=== PATIENT | male | born 1965 | race Caucasian/White ===

== ENCOUNTER 2018-06-28 11:53 | Emergency (ER) | payer BC ==
[~2018-06-28] VITALS: Ht 172.7 cm; Wt 74.8 kg
--- NOTE | ~2018-06-28 | EKG ---
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
[2018-06-28] MEDS ORDERED: LIPITOR 20 MG T20 M1 PO (12:24)
[2018-06-28 12:27] LABS: ABSOLUTE NEUTROPHILS 3.6 thou/uL (1.4-8.2); BASOPHILS 1.2 % (0.0-2.0); EOSINOPHILS 0.7 % (0.0-3.0); HEMOGLOBIN 14.8 gm/dL (14.0-18.0); MCH 28.8 pg (26.0-34.0); MCHC 34.5 g/dL (28.0-37.0); MCV 83.6 fL (80.0-100.0); MONOCYTES 7.9 % (1.0-8.0); PLATELET COUNT 214 thou/uL (150-400); POLYS 56.2 % (36.0-66.0); RBC 5.14 mil/uL (4.50-6.00); RDW 12.8 % (10.5-14.5); WBC 6.5 thou/uL (4.0-11.0)
[2018-06-28 12:38] LABS: ANION GAP 10 mmol/L (7-16); BUN 11 mg/dL (7-18); CALCIUM 9.5 mg/dL (8.5-10.1); CHLORIDE 101 mmol/L (98-107); CO2 28 mmol/L (21-32); GLUCOSE 101 mg/dL (74-106); POTASSIUM 3.8 mmol/L (3.5-5.1); SODIUM 139 mmol/L (136-145)
[2018-06-28 12:46] LABS: TROPONIN-I <0.06 ng/mL (<0.06)
[2018-06-28] MEDS ORDERED: MOBIC15 MG PO (13:17)
[2018-06-28 13:19] VITALS: BP 141/82
== END 2018-06-28 13:23 | disposition home or self-care (01) ==
LOC: ER 11:53
PROVIDERS: Physician Assistant
DX: R07.89 Other chest pain (principal); Z88.1 Allergy status to other antibiotic agents